=== PATIENT | male | born 1995 | race Caucasian/White ===

== ENCOUNTER 2021-02-02 02:59 | Emergency (ER) | payer OTHER ==
[2021-02-02 04:30] VITALS: BP 143/82; PULSE 85; TEMP 98.9; BMI 28.7
[2021-02-02] MEDS ORDERED: CLINDAMYCIN 600MG PREMIX IVPB 600 MG/50 ML BAG IVPB ONE (06:28)
[2021-02-02 07:23] LABS: HEMATOCRIT 43.9 % (35.4-49); HEMOGLOBIN 15.3 GM/dL (11.7-16.9); MCH 31.9 pg (25.7-33.7); MCHC 34.9 g/dl (32.0-35.9); MEAN CELL VOLUME 91.4 fl (80-96); MEAN PLT VOLUME 7.7 fl (7.5-11.1); PLATELET COUNT 219 10^3/uL (134-434); RBC 4.81 M/mm3 (4.00-5.60); RDW 13.6 % (11.9-15.9)
[2021-02-02 07:40] LABS: ALBUMIN 4.1 g/dl (3.4-5.0); CALCIUM 8.9 mg/dL (8.5-10.1)
[2021-02-02 07:41] LABS: BLOOD UREA NITROGEN 9.6 mg/dL (7-18)
[2021-02-02 07:43] LABS: CREATININE 0.8 mg/dL (0.55-1.3)
[2021-02-02 07:45] LABS: BILIRUBIN,TOTAL 1.8 mg/dL (0.2-1); TOT PROT 7.6 g/dl (6.4-8.2)
[2021-02-02] MEDS ORDERED: KETOROLAC TROMETHAMINE 30 MG/1 ML VIAL IVPUSH ONE (10:07)
[2021-02-02] MEDS ORDERED: KETOROLAC TROMETHAMINE 30 MG/1 ML VIAL ONE (10:17)
== END 2021-02-02 11:50 | disposition home or self-care (01) ==
LOC: JER 02:59
PROC: 3E033GC Introduction of Other Therapeutic Substance into Peripheral Vein, Percutaneous Approach (ICD-10-PCS; principal; 2021-02-02)
DX: L03.211 Cellulitis of face (principal)
CPT/HCPCS: 36415; 70487-TC; 80053; 85027; 99285-25